=== PATIENT | female | born 1995 | race African-American/Black ===

== ENCOUNTER 2022-09-20 20:54 | Day surgery (SDC) | payer OTHER ==
[2022-09-20 21:27] VITALS: BMI 33.3
[2022-09-20] MEDS ORDERED: hydrALAZINE 20 MG/ML VIAL SLOW IVP PRN (22:09)
== END 2022-09-20 23:08 | disposition home or self-care (01) ==
LOC: CSHLD/OP 20:54
PROVIDERS: ATTEND Obstetrics & Gynecology
DX: O47.03 False labor before 37 completed weeks of gestation, third trimester (principal); Z79.899 Other long term (current) drug therapy; Z3A.34 34 weeks gestation of pregnancy
CPT/HCPCS: 99283

== ENCOUNTER 2022-10-02 23:51 | Day surgery (SDC) | payer OTHER ==
[2022-10-03] MEDS ORDERED: hydrALAZINE 20 MG/ML VIAL SLOW IVP PRN (00:34)
== END 2022-10-03 04:06 | disposition home or self-care (01) ==
LOC: CSHLD/OP 23:51
PROVIDERS: ATTEND Obstetrics & Gynecology
DX: O47.03 False labor before 37 completed weeks of gestation, third trimester (principal); O99.513 Diseases of the respiratory system complicating pregnancy, third trimester; J45.909 Unspecified asthma, uncomplicated; Z79.899 Other long term (current) drug therapy; Z3A.36 36 weeks gestation of pregnancy
CPT/HCPCS: 99283

== ENCOUNTER 2022-10-09 15:30 | Day surgery (SDC) | payer OTHER ==
[2022-10-09 16:07] VITALS: BMI 33.4
== END 2022-10-09 18:45 | disposition home or self-care (01) ==
LOC: CSHLD/OP 15:30
PROVIDERS: ATTEND Obstetrics & Gynecology
DX: O47.1 False labor at or after 37 completed weeks of gestation (principal); O36.8130 Decreased fetal movements, third trimester, not applicable or unspecified; O99.513 Diseases of the respiratory system complicating pregnancy, third trimester; J45.909 Unspecified asthma, uncomplicated; Z79.899 Other long term (current) drug therapy; Z3A.37 37 weeks gestation of pregnancy
CPT/HCPCS: 76819; 99283

== ENCOUNTER 2022-10-25 05:30 | Inpatient (IN) | payer OTHER ==
[~2022-10-25 05:30] MED LIST: Acetaminophen 500 MG TAB PO PRN; Butorphanol Tartrate 1 MG/ML VIAL SLOW IVP PRN; Carboprost 250 MCG/ML AMP IM PRN; Diphenoxylate HCl/Atropine Tablet PO PRN; Docusate 100 MG CAP PO PRN; HYDROcodone/Acetaminophen 5/325 mg Tablet PO PRN; Ibuprofen 800 MG TAB PO PRN; Lactated Ringer's 1,000 ML IV SCH; Lidocaine 1% (PF) 30 ML VIAL SC PRN; Methylergonovine 0.2 MG/ML VIAL IM PRN; Misoprostol 200 MCG TAB PR PRN; NS w/ Oxytocin 30 units 500 ML IV SCH; Ondansetron PF 4 MG/2 ML Vial IVP PRN; Promethazine HCl 25 MG/ML VIAL IM PRN; Tranexamic Acid 1,000 MG in Sodium Chloride 0.9% 250 ML 250 ML IVPB PRN; hydrALAZINE 20 MG/ML VIAL SLOW IVP PRN
[2022-10-25] MEDS ORDERED: Misoprostol 100 MCG TAB VAG SCH (06:00)
[2022-10-25 07:56] LABS: Hemoglobin 10.9 g/dL (12.0-15.5); Mean Corpuscular HGB CONC 32.2 g/dL (32.0-36.0); Mean Corpuscular Hemoglobin 25.2 pg (27.0-33.0); Mean Corpuscular Volume 78.5 fl (81.6-98.3); Platelet Count 262 10x3/uL (150-450); RBC Distribution Width 16.7 % (11.5-14.5); Red Blood Cell (RBC) Count 4.32 10x6/uL (3.90-5.03); White Blood Cell (WBC) Count 9.5 10x3/uL (3.5-10.5)
[2022-10-25 08:12] LABS: Syphilis Antibody Nonreactive (Nonreactive); Syphilis Antibody Index 0.08 S/CO (<1.00 Non-Reactive)
[2022-10-25 08:16] LABS: HBSAg Index 0.16 S/CO (0-0.99); Hep B Surf Ag Non-Reactive S/CO (NonReactive)
[2022-10-25 08:40] VITALS: BMI 33.6
[2022-10-25 08:56] LABS: SARS-CoV-2 NAA Rapid Test Not Detected (NotDetected)
[2022-10-25] MEDS ORDERED: Fentanyl 2 mcg/Bup 0.1% Cadd 100 ML ONE (09:54)
[2022-10-25] MEDS ORDERED: Moisturizing Cream (Eucerin) 113 GM JAR TOP PRN (10:30)
[2022-10-25] MEDS ORDERED: diphenhydrAMINE 50 MG/ML VIAL IVP PRN (10:30)
[2022-10-25] MEDS ORDERED: Naloxone HCl 0.4 mg/ml Vial IVP PRN ×2 (10:30)
[2022-10-25] MEDS ORDERED: Ondansetron PF 4 MG/2 ML Vial IVP PRN ×2 (10:30→13:20)
[2022-10-25] MEDS ORDERED: Communication Order-Pharmacy FS SCH (10:30)
[2022-10-25] MEDS ORDERED: Fentanyl 2 mcg/Bupivacaine 0.1% Cassette 100 ML EPIDURAL SCH (10:30)
[2022-10-25] MEDS ORDERED: Lactated Ringer's 500 ML IV PRN (10:30)
[2022-10-25] MEDS ORDERED: Promethazine HCl 25 MG/ML VIAL IM PRN ×2 (10:30→13:20)
[2022-10-25] MEDS ORDERED: Acetaminophen 325 MG TAB PO PRN (10:30)
[2022-10-25] MEDS ORDERED: ePHEDrine Sulfate 50 MG/10 ML VIAL SLOW IVP PRN (10:30)
[2022-10-25] MEDS ORDERED: Fentanyl 100 MCG/2 ML VIAL ONE (11:18)
[2022-10-25] MEDS ORDERED: Preparation H Ointment 28 GM TUBE PR PRN (13:20)
[2022-10-25] MEDS ORDERED: Measles/Mumps/Rubella 10 MCG/0.5 ML VIAL SC ONE (13:20)
[2022-10-25] MEDS ORDERED: Boostrix 0.5 ML (Tdap) VIAL (>/=7 yrs of age) IM ONE (13:20)
[2022-10-25] MEDS ORDERED: Methylergonovine 0.2 MG/ML VIAL IM PRN (13:20)
[2022-10-25] MEDS ORDERED: Varicella virus, LIVE 0.5 ML VIAL SC ONE (13:20)
[2022-10-25] MEDS ORDERED: Milk Of Magnesia 30 ML UDCUP PO PRN (13:20)
[2022-10-25] MEDS ORDERED: Zolpidem Tartrate 5 MG TAB PO PRN (13:20)
[2022-10-25] MEDS ORDERED: diphenhydrAMINE 25 MG CAP PO PRN (13:20)
[2022-10-25] MEDS ORDERED: Bisacodyl 10 MG SUPP PR PRN (13:20)
[2022-10-25] MEDS ORDERED: Benzocaine-Menthol 82.5 ML CAN TOP PRN (13:20)
[2022-10-25] MEDS ORDERED: HYDROcodone/Acetaminophen 5/325 mg Tablet PO PRN (13:20)
[2022-10-25] MEDS ORDERED: NS w/ Oxytocin 30 units 500 ML IV SCH (13:20)
[2022-10-25] MEDS ORDERED: Lanolin Ointment 7 GM TUBE TOP PRN (13:20)
[2022-10-25] MEDS ORDERED: Misoprostol 200 MCG TAB VAG PRN (13:20)
[2022-10-25] MEDS ORDERED: hydrALAZINE 20 MG/ML VIAL SLOW IVP PRN (13:20)
[2022-10-25] MEDS: Ibuprofen 800 MG TAB PO SCH ×2 (16:55→21:32)
[2022-10-25] MEDS: Ferrous Sulfate 325 MG TAB PO SCH (16:55)
[2022-10-25] MEDS: Docusate 100 MG CAP PO SCH (21:32)
[2022-10-26 04:55] LABS: Hemoglobin 12.4 g/dL (12.0-15.5); Mean Corpuscular HGB CONC 31.2 g/dL (32.0-36.0); Mean Corpuscular Hemoglobin 25.2 pg (27.0-33.0); Mean Corpuscular Volume 80.7 fl (81.6-98.3); Mean Platelet Volume 10.3 fl (7.4-10.4); Platelet Count 306 10x3/uL (150-450); RBC Distribution Width 17.2 % (11.5-14.5); Red Blood Cell (RBC) Count 4.92 10x6/uL (3.90-5.03); White Blood Cell (WBC) Count 12.3 10x3/uL (3.5-10.5)
[2022-10-26] MEDS: Ibuprofen 800 MG TAB PO SCH ×2 (05:46→13:52)
[2022-10-26 08:11] VITALS: BP 120/63; TEMP 98.6
[2022-10-26] MEDS: Ferrous Sulfate 325 MG TAB PO SCH ×2 (08:43→16:43)
[2022-10-26] MEDS: Docusate 100 MG CAP PO SCH (08:49)
[2022-10-26] MEDS ORDERED: Prenatal Vitamin 1 TAB PO SCH (09:00)
[2022-10-27 16:15] LABS: HIV-1 Quantitative, RNA PCR <20 copies/mL (.)
== END 2022-10-26 15:35 | disposition home or self-care (01) | DRG 807 ==
LOC: CSHLD 05:59 → CSHPED 16:40
PROVIDERS: ADMIT Obstetrics & Gynecology; ATTEND Obstetrics & Gynecology
PROC: 10E0XZZ Delivery of Products of Conception, External Approach (ICD-10-PCS; principal; 2022-10-25)
DX: O80 Encounter for full-term uncomplicated delivery (principal); Z37.0 Single live birth; Z3A.39 39 weeks gestation of pregnancy; Z20.822 Contact with and (suspected) exposure to COVID-19
CPT/HCPCS: 36415; 51702; 85027; 86780; 86850; 86900; 86901; 87340; 87536; U0002

== ENCOUNTER 2022-12-19 21:43 | Emergency (ER) | payer OTHER ==
[2022-12-19] MEDS ORDERED: Lidocaine 1% w/Epinephrine 1:200K 30 ML VIAL ONE ×2 (22:30→22:39)
== END 2022-12-19 23:48 | disposition home or self-care (01) ==
LOC: CSHERS 21:43
DX: L02.411 Cutaneous abscess of right axilla (principal); L03.112 Cellulitis of left axilla; J45.909 Unspecified asthma, uncomplicated
CPT/HCPCS: 10060

== ENCOUNTER 2023-02-22 06:12 | Emergency (ER) | payer OTHER ==
[2023-02-22] MEDS ORDERED: Ketorolac Tromethamine 30 MG/ML VIAL ONE (06:27)
== END 2023-02-22 06:56 | disposition home or self-care (01) ==
LOC: CSHERS 06:12
DX: R07.81 Pleurodynia (principal); J45.909 Unspecified asthma, uncomplicated; Z79.899 Other long term (current) drug therapy
CPT/HCPCS: 71045; 93005; 96374; J1885

== ENCOUNTER 2023-04-02 09:09 | Emergency (ER) | payer OTHER ==
[2023-04-02 10:31] LABS: #Eosinphils 0.1 10x3/uL (0.0-0.5); #Monocytes 0.6 10x3/uL (0.0-1.1); #Neutrophils 3.7 10x3/uL (1.5-8.4); %Basophils 0.4 % (0.0-2.0); %Eosinophils 1.5 % (0.0-6.0); %Lymphocytes 40.5 % (18.0-47.0); %Monocytes 7.7 % (0.0-10.0); %Neutrophils 49.6 % (40.0-75.0); Hematocrit 39.9 % (34.9-44.5); Hemoglobin 13.4 g/dL (12.0-15.5); Mean Corpuscular HGB CONC 33.6 g/dL (32.0-36.0); Mean Corpuscular Volume 86.4 fl (81.6-98.3); Mean Platelet Volume 10.4 fl (7.4-10.4); Platelet Count 300 10x3/uL (150-450); RBC Distribution Width 12.5 % (11.5-14.5); Red Blood Cell (RBC) Count 4.62 10x6/uL (3.90-5.03); White Blood Cell (WBC) Count 7.5 10x3/uL (3.5-10.5)
[2023-04-02 11:06] LABS: Bilirubin Neg (Negative); Blood, Urine Negative (Negative); Clarity Clear (Clear); Glucose, Urine (Dipstick) Normal (Negative); Ketone, Urine Negative (Negative); Leukocyte Negative (Negative); Nitrite Negative (Negative); Protein, Urine (Dipstick) Negative (Neg-Trace); Urobilinogen Normal mg/dL (Less than 2)
[2023-04-02 11:32] LABS: Bacteria/HPF None Seen HPF (None Seen); CAUTI Indications for Culture Pregnancy; RBC/HPF 0-3 HPF (0-3); Squamous Epithelial None Seen HPF (0-3); WBC/HPF None Seen HPF (0-3)
[2023-04-02 11:33] LABS: Urine Culture Reflex Yes Yes
== END 2023-04-02 12:43 | disposition home or self-care (01) ==
LOC: CSHERS 09:09
DX: O20.0 Threatened abortion (principal); Z3A.08 8 weeks gestation of pregnancy
CPT/HCPCS: 76817; 81001; 84702; 85025; 86900; 86901; 87086